=== PATIENT | male | born 1980 | race Caucasian/White ===

== ENCOUNTER 2022-03-28 10:06 | Emergency (ER) | payer MEDICAID ==
[~2022-03-28] VITALS: Ht 177.8 cm; Wt 72.6 kg
[2022-03-28 10:07] VITALS: BP 130/90
--- NOTE | 2022-03-28 10:09 | NUR ---
PT BIBA BLS TO BED 5
--- NOTE | 2022-03-28 10:40 | NUR ---
41 y/o male biba for c/o bilateral foot pain x today. Patient has no visible signs of trauma on feet. Patient has no open sores. Patient denies any trauma or injury. Patient has bilateral pedal pulses and has color, sensation and movement. Medical History: Denies NKDA
--- NOTE | 2022-03-28 11:03 | NUR ---
Dr. Catherine evaluating patient at bedside.
[2022-03-28] MEDS ORDERED: LOTC TP (11:07)
[2022-03-28 11:35] VITALS: BP 135/83
--- NOTE | 2022-03-28 11:35 | NUR ---
Patient discharged with v/s stable. Written and verbal after care instructions given. Patient alert, oriented and verbalized understanding of instructions. Ambulatory with steady gait. All questions addressed prior to discharge. ID band removed. Patient advised to follow up with PMD. Rx of Lotrimin given. Opportunity to ask questions provided and answered.
--- NOTE | 2022-03-28 12:19 | NUR ---
The patient's care was reviewed and supervised by [facility], RN.
== END 2022-03-28 11:35 | disposition home or self-care (01) ==
LOC: MED 10:06
DX: B35.3 Tinea pedis (principal); Z59.819 Housing instability, housed unspecified
CPT/HCPCS: 99283